=== PATIENT | female | born 1990 | race Caucasian/White ===

== ENCOUNTER 2016-10-15 22:41 | Emergency (ER) | payer MEDICARE, OTHER ==
[~2016-10-15] VITALS: Ht 167.6 cm; Wt 97.5 kg
[2016-10-15] MEDS ORDERED: AMITIZA8 MCG (23:01)
[2016-10-15] MEDS ORDERED: MELOXICAM7.5 MG (23:02)
[2016-10-15] MEDS ORDERED: EFFEXOR XR150 MG (23:02)
[2016-10-15] MEDS ORDERED: RANITIDINE HCL150 M1 (23:02)
[2016-10-15] MEDS ORDERED: COD LIVER OIL1 EACH (23:03)
== END 2016-10-15 23:38 | disposition home or self-care (01) ==
LOC: SED 22:41
DX: M76.9 Unspecified enthesopathy, lower limb, excluding foot (principal); F17.200 Nicotine dependence, unspecified, uncomplicated; F32.9 Major depressive disorder, single episode, unspecified; K21.9 Gastro-esophageal reflux disease without esophagitis; J45.909 Unspecified asthma, uncomplicated
CPT/HCPCS: 99283

== ENCOUNTER 2016-11-10 21:28 | Emergency (ER) | payer MEDICARE, OTHER ==
[~2016-11-10] VITALS: Ht 167.6 cm; Wt 98.9 kg
[~2016-11-10 21:28] MED LIST: AMITIZA8 MCG; COD LIVER OIL1 EACH; EFFEXOR XR150 MG; MELOXICAM7.5 MG; RANITIDINE HCL150 M1
[2016-11-10 21:58] LABS: URINE APPEARANCE CLEAR; URINE BILIRUBIN NEG (NEG); URINE BLOOD 2+ (NEG); URINE COLOR YELLOW; URINE GLUCOSE NEG (NORM); URINE KETONE NEG (NEG); URINE LEUKOCYTE ESTERASE NEG (NEG); URINE NITRATE NEG (NEG); URINE PROTEIN NEG (NEG); URINE SOURCE CLEAN CATCH; URINE SPECIFIC GRAVITY <=1.005 (1.003-1.035); URINE UROBILINOGEN 0.2 MG/DL (NORM)
[2016-11-10 21:59] LABS: MICRO INDICATED? YES
[2016-11-10 22:06] LABS: CULTURE INDICATED? NO; URINE BACTERIA NEG (NEG); URINE RBC 0-2 /[HPF] (0-2); URINE SQUAMOUS EPITHELIAL CELL FEW /[HPF]; URINE WBC NEG /[HPF] (0-5)
== END 2016-11-10 22:48 | disposition home or self-care (01) ==
LOC: SED 21:28
PROVIDERS: Emergency Medicine
DX: M54.5 Low back pain (principal); K21.9 Gastro-esophageal reflux disease without esophagitis; F32.9 Major depressive disorder, single episode, unspecified; J45.909 Unspecified asthma, uncomplicated; F17.210 Nicotine dependence, cigarettes, uncomplicated; Z79.899 Other long term (current) drug therapy
CPT/HCPCS: 81003; 82947; 84703; 99283